=== PATIENT | female | born 1965 | race American Indian/Alaskan Native ===

== ENCOUNTER 2024-09-02 05:32 | Emergency (ER) | payer BC ==
[2024-09-02] MEDS: Amoxicillin/Clavulanate K 875-125 MG Tab PO ONE (06:31)
== END 2024-09-02 06:32 | disposition home or self-care (01) ==
LOC: JD.ED 05:32
DX: S01.25XA Open bite of nose, initial encounter (principal); Z88.8 Allergy status to other drugs, medicaments and biological substances; Z79.899 Other long term (current) drug therapy; W54.0XXA Bitten by dog, initial encounter
CPT/HCPCS: 99283; A9270